=== PATIENT | male | born 1960 | race Caucasian/White ===

== ENCOUNTER 2019-03-12 20:27 | Emergency (ER) | payer SELFPAY ==
[~2019-03-12] VITALS: Ht 188 cm; Wt 111.1 kg
--- NOTE | 2019-03-12 20:27 | NUR ---
Patient to [facility] for evaluation. Side rails up.
--- NOTE | 2019-03-12 20:28 | NUR ---
ER Dr. Rodriguez at bedside examining patient.
--- NOTE | 2019-03-12 20:30 | NUR ---
Patient brought in for medical clearance. Patient reports he has history of cirrhosis and hepatitis C . Patient voiced no complaints. Denies any pain
[2019-03-12 20:33] VITALS: BP_SYST 140
[2019-03-12 21:04] VITALS: BP_SYST 136
--- NOTE | 2019-03-12 21:04 | NUR ---
Patient and [facility] [place] given written and verbal discharge instructions and verbalizes understanding. ER MD discussed with patient the results and treatment provided. Patient in stable condition. ID arm band removed. Mp Rx given. Patient educated on pain management and to follow up with PMD in 2-3 days. Pain Scale 0/10 Opportunity for questions provided and answered. Medication side effect fact sheet provided.
== END 2019-03-12 21:40 ==
LOC: SED 20:27
DX: Z02.89 Encounter for other administrative examinations (principal); I10 Essential (primary) hypertension
CPT/HCPCS: 99283